=== PATIENT | female | born 1950 | race Caucasian/White ===

== ENCOUNTER 2016-04-29 08:49 | Day surgery (SDC) | payer MEDICARE, OTHER ==
--- NOTE | 2016-04-26 16:02 | HP ---
PROCEDURE DATE: 04/29/16 HISTORY OF PRESENT ILLNESS: The patient is a 65 y/o with history of some right-sided abdominal pain. Started [address] scan showed multifocal ascending colon bowel wall thickening. We felt the patient needed colonoscopy. Has had descending diverticula. She had chronic hiatal hernia with partial thoracic stomach. No fever. No diarrhea currently per the patient. No blood in her stool currently. She took some tramadol and had some vomiting after taking tramadol. PAST MEDICAL HISTORY: She has had history of breast cancer, hypothyroidism, hypertension, hypercholesterolemia. She had a stroke in the past. She had Factor V deficiency, prothrombin gene. CURRENT MEDICATIONS: Levothyroxine, lisinopril, omeprazole, simvastatin, and Xarelto. ALLERGIES: SHE HAD PROBLEMS WITH NORCO, CODEINE, AND POSSIBLY TRAMADOL, SHE HAD SOME VOMITING AFTER TAKING IT. PAST SURGICAL HISTORY: She had D&C, thermal ablation, hysterectomy. She had meniscus tears in the past. She had a mass near her thyroid in the past. Had breast cancer surgery in the past. FAMILY HISTORY: Negative for colon cancer. Family history of diverticular disease. Negative for inflammatory bowel disease in the family. Heart disease, diabetes, hypertension, lung cancer. She had some right abdominal pain. Had colon thickening. [place] she would benefit from colonoscopy. Additionally, the fact that she had history of Hahn's clinically on Dr. Ernst's exams in the past per history, felt she would also benefit from upper endoscopy in addition to the colonoscopy. SOCIAL HISTORY: No alcohol abuse. REVIEW OF SYSTEMS: 10 systems reviewed per admission assessment. Otherwise, no chest pains or palpitations currently. Otherwise, pertinent for as noted above. PHYSICAL EXAMINATION: GENERAL: No acute distress. HEENT: Sclerae nonicteric. NECK: No JVD. ABDOMEN: Soft. No peritoneal signs. EXTREMITIES: No significant edema. NEURO: Alert, moving extremities grossly symmetrically. RECTAL: Deferred until time of endoscopy exam. IMPRESSION: 1. HISTORY OF SOME RIGHT-SIDED ABDOMINAL PAIN. She had some multifocal colon thickening in the ascending colon on CT scan. Feel she needs colonoscopy to evaluate for colitis or some inflammatory bowel disease vs neoplasia or other etiology. Additionally, as she has had a history of Hahn's and she thinks it has been about 3 years or so since she has had an endoscopy in the past, feel she would benefit from follow-up surveillance upper endoscopy as she has had a history of Hahn's followed by Dr. Ernst in the past as he has left town. Therefore, will proceed with colonoscopy and upper endoscopy as an outpatient. Risks and benefits explained in detail, but not limited to, bleeding; infection; small risk of bowel injury or perforation possibly requiring open procedure; small risk of missed or nondiagnosis or incomplete exam possibly requiring barium enema or other studies or procedures; general risks of anesthesia or sedation. 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 She has a little bit increased risk of clots, stroke, or other thrombosis. Otherwise, general risks of anesthesia, deep vein thrombosis, pulmonary embolism, or pneumonia; risk of bowel prep; postoperative risks of nausea, vomiting, or cramping or possibility of inability to diagnose the etiology of what caused her symptoms to begin with. She understands and agrees to the planned procedure. Will proceed with colonoscopy and upper endoscopy as an outpatient under MAC anesthesia.
[~2016-04-29 08:49] MED LIST: DIPRIVAN 200 MG/20 ML IV ONE; Lactated Ringers 1,000 ML IV ONE; Lactated Ringers 1,000 ML IV SCH; SUBLIMAZE 100 MCG/2 ML IV ONE; Versed 2 MG/2 ML Injection IV ONE
[2016-04-29 09:33] VITALS: O2SAT 98
[2016-04-29 12:15] VITALS: BP 106/59; PULSE 90
--- NOTE | 2016-04-29 12:31 | OP ---
SURGERY DATE/TIME: 04/29/2016 1000 PREOPERATIVE DIAGNOSES: 1) History of Hahn's esophagus followed by Dr. Alexandr Ernst. 2) History of right abdominal pain, some thickening in the right colon on CT scan, need for colonoscopy as well as follow up screening upper endoscopy. POSTOPERATIVE DIAGNOSES: 1) Hiatal hernia. 2) Mild gastritis. 3) No gross Hahn's or changes. Biopsy taken where questioned area had healed distal esophagus just above gastroesophageal junction. 4) Very poor bowel prep very much limiting colon exam. 5) Diverticulosis. 6) Internal and external hemorrhoids. 7) Small early polyp versus hyperplastic lesion transverse colon. 8) Small raised lesion x2 versus early polyps or hyperplastic lesion rectum. PROCEDURES: 1) Colonoscopy to cecum with hot snare polypectomy transverse colon polyp. 2) Hot biopsy of small raised rectal lesion versus early polyp or hyperplastic lesion. 3) Random cold biopsy colon to evaluate for microscopic colitis. 4) EGD with biopsy of the antrum to evaluate for Helicobacter pylori. 5) Cold biopsy distal esophagus gastroesophageal junction. 6) EGD with cold biopsy to the antrum, cold biopsy distal esophagus to gastroesophageal junction, cold biopsy small gastric polyps. SURGEON: Dr. Denny Dumont. SAFE DEPOSIT CLERK: Pamella Martinez, Medical Student III. ANESTHESIA: MAC. ESTIMATED BLOOD LOSS: Minimal. INDICATIONS: As noted above. Risks and benefits explained in detail and not limited to and consent obtained. DESCRIPTION OF PROCEDURE AND FINDINGS: The patient was taken to the operating room. MAC anesthesia induced. After official time out and no disagreement with planned procedure, bite block positioned. Video gastroscope easily passed down the esophagus through the patent pylorus to the junction of the second and third portion of the duodenum. The duodenum and duodenal bulb grossly unremarkable. Back in the stomach she had some mild chronic erythema. It was felt that she warranted biopsy to evaluate for Helicobacter pylori. Cold biopsy taken. Good hemostasis noted. Otherwise she did have a couple small question of fundal gland polyps in the mid body of the stomach. These were removed with cold biopsy forceps. On retroflex she did have a hiatal hernia. The scope is then straightened. Gastroesophageal junction with a little bit of inflammation on the gastric side but the gastroesophageal junction z-line appeared fairly crisp. There did not appear to be the usual long standing Hahn's changes. Cold biopsy was taken in an area where there was question whether she could have had Hahn's in the past. Good hemostasis noted. Cold biopsy also taken of the slightly inflamed gastric site of the gastroesophageal junction. The remainder of the esophagus was grossly unremarkable. No signs of any obvious mucosal lesions. The scope is withdrawn. The patient tolerated the procedure well. There were no immediate complications. Attention is then turned to the colon exam. Digital rectal exam did not reveal any rectal masses. She did have some internal and external hemorrhoids. Video colonoscope inserted and passed up through the very poorly prepped colon. A large amount of semisolid to solid liquidy stool very much limiting the exam. This combined with some spasm and very tortuous colon made quite a lengthy process but slow careful advancing of the scope and very carefully navigating up through the sigmoid, descending, transverse colon. With external pressure and positioning on her back the scope was finally able to be advanced down the ascending colon to the cecum. Again the prep was very poor. Because of looping the scope would not go up the terminal ileum at this point in time. On withdrawal of the scope some random cold biopsies taken throughout the colon to evaluate for microscopic colitis. There did not appear to be any signs of any large polyps, masses or obstructing lesions particularly in the right colon where the CT scan findings had been noted but again the prep was very poor limiting exam for potentially small lesions. It was suction irrigated as well as possible but did limit exam. The scope slowly and carefully withdrawn. In the transverse colon there is a small polyp removed with hot snare polypectomy and brief bursts of cautery. Good hemostasis noted. Whether this is simple hyperplastic versus early adenomatous polyp was removed with hot snare and passed off elevating well away from the bowel wall. The scope is slowly and carefully withdrawn. There are no signs of any large polyps, masses or obstructing lesions. Again a very poor prep with large amount of solid, semisolid, liquidy stool limiting the exam. The scope is slowly and carefully withdrawn. She had some diverticulosis, had some small internal and external hemorrhoids. As there are no signs of any other large polyps, masses or obstructing lesions back in the rectum, she had two small raised lesions whether these are early true polyp versus hyperplastic lesions or variations of the mucosa they are removed with hot biopsy forceps with brief bursts of cautery. Good hemostasis noted. Other than that again random cold biopsy had been taken in the colon to evaluate for microscopic colitis. The scope is withdrawn. The patient tolerated the procedure well. There were no immediate complications. Findings discussed with the family out in the waiting area.
== END 2016-04-29 12:22 | disposition home or self-care (01) ==
LOC: SDC 08:49
PROVIDERS: ATTEND Surgery
PROC: 0DBL8ZX Excision of Transverse Colon, Via Natural or Artificial Opening Endoscopic, Diagnostic (ICD-10-PCS; principal; 2016-04-29)
PROC: 0DBP8ZX Excision of Rectum, Via Natural or Artificial Opening Endoscopic, Diagnostic (ICD-10-PCS; 2016-04-29)
PROC: 0DBE8ZX Excision of Large Intestine, Via Natural or Artificial Opening Endoscopic, Diagnostic (ICD-10-PCS; 2016-04-29)
PROC: 0DB68ZX Excision of Stomach, Via Natural or Artificial Opening Endoscopic, Diagnostic (ICD-10-PCS; 2016-04-29)
PROC: 0DB58ZX Excision of Esophagus, Via Natural or Artificial Opening Endoscopic, Diagnostic (ICD-10-PCS; 2016-04-29)
PROC: 0DB38ZX Excision of Lower Esophagus, Via Natural or Artificial Opening Endoscopic, Diagnostic (ICD-10-PCS; 2016-04-29)
PROC: 0DB68ZX Excision of Stomach, Via Natural or Artificial Opening Endoscopic, Diagnostic (ICD-10-PCS; 2016-04-29)
DX: K44.9 Diaphragmatic hernia without obstruction or gangrene (principal); K22.70 Barrett's esophagus without dysplasia; K29.70 Gastritis, unspecified, without bleeding; K57.90 Diverticulosis of intestine, part unspecified, without perforation or abscess without bleeding; K64.4 Residual hemorrhoidal skin tags; K64.8 Other hemorrhoids; D12.3 Benign neoplasm of transverse colon; K63.9 Disease of intestine, unspecified; K62.1 Rectal polyp; Z85.3 Personal history of malignant neoplasm of breast; E03.9 Hypothyroidism, unspecified; I10 Essential (primary) hypertension; E78.00 Pure hypercholesterolemia, unspecified; D68.2 Hereditary deficiency of other clotting factors; Z79.01 Long term (current) use of anticoagulants; Z79.899 Other long term (current) drug therapy; Z86.73 Personal history of transient ischemic attack (TIA), and cerebral infarction without residual deficits
CPT/HCPCS: 00740; 00810; 36415; 88305; 88312; J2250; J2704; J3010

== ENCOUNTER 2018-10-28 12:16 | Emergency (ER) | payer MEDICARE ==
--- NOTE | 2018-10-28 12:49 | ERPHSYRPT ---
- History of Present Illness Time Seen by Provider: 10/28/18 12:49 Exam Limitations: no limitations Patient Subjective Stated Complaint: pt alert, resp easy, skin w/d/p,rip. mastectomy in jan 2018, cva 10/03/2018 with left sided deficit, no swelling noted , port a cath to right side of chest, denies pain Triage Nursing Assessment: pt here for for high b/p today of 255/127.he took b/ p at 0720 and again at 1015. her b.p came down some but still wanted her seen. she has no symptoms with it Physician History: Hypertension; episodic since chemotherapy earler in summer. Today two episodes of high blood pressure - referred to ER by primary are. Nausea is present but this has been present previously with chemotherapy. Allergies/Adverse Reactions: codeine Adverse Reaction (Verified 10/28/18 12:33) Vomiting hydrocodone [From [place]] Adverse Reaction (Verified 10/28/18 12:33) Vomiting tramadol Adverse Reaction (Verified 10/28/18 12:33) Vomiting Home Medications: Famotidine 20 mg [Pepcid 20 MG] 40 mg PO UD PRN 04/19/16 [History] Levothyroxine Sodium 100 Mcg [Synthroid 100 Mcg] 100 mcg PO DAILY 04/19/16 [History] Lisinopril 20 mg [Zestril 20 MG] 20 mg PO DAILY 04/19/16 [History] Omeprazole 20 MG [Prilosec 20 mg] 40 mg PO DAILY 04/19/16 [History] Rivaroxaban [Xarelto] 20 mg PO DAILY 04/19/16 [History] Simvastatin 40 mg [Zocor 40 mg] 40 mg PO DAILY 04/19/16 [History] Hx Influenza Vaccination/Date Given: Yes Hx Pneumococcal Vaccination/Date Given: Yes Immunizations Up to Date: Yes - Review of Systems Constitutional: No Symptoms Ears, Nose, & Throat: No Symptoms Respiratory: No Symptoms, No Cough, No Dyspnea Cardiac: No Symptoms, No Chest Pain Abdominal/Gastrointestinal: Nausea, Vomiting (1 X in ER (patient says not unusual - takes compazine for nausea)) All Other Systems: Reviewed and Negative - Past Medical History Pertinent Past Medical History: Yes Neurological History: Stroke ENT History: No Pertinent History Cardiac History: Deep Vein Thrombosis, High Cholesterol, Hypertension, Other Respiratory History: No Pertinent History Endocrine Medical History: Hypothyroidism Musculoskeletal History: Osteoarthritis GI Medical History: GERD, Gallbladder Disease, Other History: Other Psycho-Social History: No Pertinent History Female Reproductive Disorders: Breast Cancer Other Medical History: MVP. left kidney 15% function. hiatal hernia- barettes Esophagus. Factor 5 blood dyscrasia - Past Surgical History Past Surgical History: Yes Neuro Surgical History: No Pertinent History Cardiac: No Pertinent History Respiratory: No Pertinent History Gastrointestinal: Cholecystectomy Genitourinary: No Pertinent History Musculoskeletal: Orthopedic Surgery Female Surgical History: Hysterectomy, Tubal Ligation, Mastectomy, Lumpectomy Other Surgical History: meniscus tear, right knee replaced. breast lumpectomy blood clot removal. d&c ablation. thyroid area nodule - not thyroid - Social History Smoking Status: Never smoker Exposure to second hand smoke: No Drug Use: none Patient Lives Alone: No - Female History Hx Last Menstrual Period: post Hx Now: No - Nursing Vital Signs Nursing Vital Signs: Initial Vital Signs Temperature 97.7 F 10/28/18 12:20 Pulse Rate 75 10/28/18 12:20 Respiratory Rate 18 10/28/18 12:20 Blood Pressure 201/67 10/28/18 12:20 O2 Sat by Pulse Oximetry 97 10/28/18 12:20 Pain Scale Pain Intensity 0 - Physical Exam General Appearance: no apparent distress Eye Exam: PERRL/EOMI Neck Exam: normal inspection Respiratory Exam: normal breath sounds, chest tenderness, lungs clear, airway intact, No respiratory distress Cardiovascular Exam: regular rate/rhythm, normal heart sounds Gastrointestinal/Abdomen Exam: soft, other (mildly hyperactive bowell sounds ( has had diarrhea since chemotherapy)) Extremity Exam: normal inspection, pedal edema (bilat mild - non pitting) SpO2: 97 - Course Nursing assessment & vital signs reviewed: Yes EKG Interpreted by Me: RATE (59), Sinus Rhythm, NORMAL AXIS, NORMAL INTERVALS, Other (Compared with 05/13/13 no specific changes) Rhythm Strip: Rate (60), Normal Sinus Rhythm - Radiology Exams Chest X-ray Interpretation: Reviewed by me, Other (No acute changes) Ordered Tests: Active Orders 24 hr Category Date Time Status CHEST 2 VIEWS (PA AND LAT) Stat Exams 10/28/18 13:00 Completed CBC W DIFF Stat Lab 10/28/18 13:15 Completed CMP Stat Lab 10/28/18 13:15 Completed D-DIMER QUANTITATION Stat Lab 10/28/18 13:15 Completed MAGNESIUM Stat Lab 10/28/18 13:15 Completed TROPONIN Q3H Lab 10/28/18 13:15 Completed TROPONIN Q3H Lab 10/28/18 16:00 Ordered TROPONIN Q3H Lab 10/28/18 19:00 Ordered TROPONIN Q3H Lab 10/28/18 22:00 Ordered TROPONIN Q3H Lab 10/29/18 01:00 Ordered Medication Summary Generic Name Dose Route Start Last Admin Trade Name Freq PRN Reason Stop Dose Admin Heparin Sodium (Beef Lung) 500 units 10/28/18 14:35 Heparin Lock Flush 100 Units/Ml 5ml Syringe PORT FLUSH 11/27/18 14:34 PRN PRN IV PORT FLUSH Heparin Sodium (Beef Lung) 500 units 10/28/18 14:37 Heparin Lock Flush 100 Units/Ml 5ml Syringe PORT FLUSH 11/27/18 14:36 PRN PRN IV PORT FLUSH Lab/Rad Data: Laboratory Result Diagrams 10/28/18 13:15 10/28/18 13:15 Laboratory Results 10/28/18 10/28/18 10/28/18 Range/Units 13:15 13:15 13:15 WBC (4.0-10.5) K/mm3 RBC (4.1-5.4) M/mm3 Hgb (12.0-16.0) gm/dl Hct (35-47) % MCV (78-100) fl MCH (26-32) pg MCHC (32-36) g/dl RDW (11.5-14.0) % Plt Count (150-450) K/mm3 MPV (6-9.5) fl Gran % (36.0-66.0) % Eos # (Auto) (0-0.5) Absolute Lymphs (auto) (1.0-4.6) Absolute Monos (auto) (0.0-1.3) Lymphocytes % (24.0-44.0) % Monocytes % (0.0-12.0) % Eosinophils % (0.00-5.0) % Basophils % (0.0-0.4) % Absolute Granulocytes (1.4-6.9) Basophils # (0-0.4) D-Dimer 371 (215-500) ng/mL Sodium 140 (137-145) mmol/L Potassium 4.7 (3.5-5.1) mmol/L Chloride 107 (98-107) mmol/L Carbon Dioxide 25 (22-30) mmol/L Anion Gap 12.5 (5-15) MEQ/L BUN 19 H (7-17) mg/dL Creatinine 1.01 (0.52-1.04) mg/dL Estimated GFR 57.9 ML/MIN Glucose 144 H (74-106) mg/dL Calcium 9.6 (8.4-10.2) mg/dL Magnesium 1.5 L (1.6-2.3) mg/dL Total Bilirubin 0.30 (0.2-1.3) mg/dL AST 20 (14-36) U/L ALT 17 (0-35) U/L Alkaline Phosphatase 122 (38-126) U/L Troponin I < 0.012 (0.000-0.034) ng/mL Serum Total Protein 7.2 (6.3-8.2) g/dL Albumin 4.1 (3.5-5.0) g/dL 10/28/18 Range/Units 13:15 WBC 3.7 L (4.0-10.5) K/mm3 RBC 3.41 L (4.1-5.4) M/mm3 Hgb 11.3 L (12.0-16.0) gm/dl Hct 33.9 L (35-47) % MCV 99.4 (78-100) fl MCH 33.1 H (26-32) pg MCHC 33.3 (32-36) g/dl RDW 12.2 (11.5-14.0) % Plt Count 200 (150-450) K/mm3 MPV 10.8 H (6-9.5) fl Gran % 64.2 (36.0-66.0) % Eos # (Auto) 0.10 (0-0.5) Absolute Lymphs (auto) 0.97 L (1.0-4.6) Absolute Monos (auto) 0.23 (0.0-1.3) Lymphocytes % 26.5 (24.0-44.0) % Monocytes % 6.3 (0.0-12.0) % Eosinophils % 2.7 (0.00-5.0) % Basophils % 0.3 (0.0-0.4) % Absolute Granulocytes 2.35 (1.4-6.9) Basophils # 0.01 (0-0.4) D-Dimer (215-500) ng/mL Sodium (137-145) mmol/L Potassium (3.5-5.1) mmol/L Chloride (98-107) mmol/L Carbon Dioxide (22-30) mmol/L Anion Gap (5-15) MEQ/L BUN (7-17) mg/dL Creatinine (0.52-1.04) mg/dL Estimated GFR ML/MIN Glucose (74-106) mg/dL Calcium (8.4-10.2) mg/dL Magnesium (1.6-2.3) mg/dL Total Bilirubin (0.2-1.3) mg/dL AST (14-36) U/L ALT (0-35) U/L Alkaline Phosphatase (38-126) U/L Troponin I (0.000-0.034) ng/mL Serum Total Protein (6.3-8.2) g/dL Albumin (3.5-5.0) g/dL - Departure Departure Disposition: Home Clinical Impression: Labile hypertension Condition: Good Critical Care Time: No Referrals: AZAR CHRISTIAN [Primary Care Provider] - Instructions: High Blood Pressure (DC) Additional Instructions: Continue medical plans by specialists and primary care. Follow up with primary care after their change in medication for blood pressure dosage today.
[2018-10-28 13:18] LABS: BASOPHIL % 0.3 % (0.0-0.4); Basophil (Absolute #) 0.01 (0-0.4); Eosinophil % 2.7 % (0.00-5.0); Granulocyte Absolute (ANC) 2.35 (1.4-6.9); Granulocytes % 64.2 % (36.0-66.0); Hematocrit 33.9 % (35-47); Hemoglobin 11.3 gm/dl (12.0-16.0); Lymphocyte (Absolute #) 0.97 (1.0-4.6); Lymphocytes % 26.5 % (24.0-44.0); Mean Cell Volume 99.4 fl (78-100); Mean Corpuscular Hemoglobin 33.1 pg (26-32); Mean Corpuscular Hgb Concent. 33.3 g/dl (32-36); Mean Platelet Volume 10.8 fl (6-9.5); Monocyte (Absolute #) 0.23 (0.0-1.3); Monocytes % 6.3 % (0.0-12.0); Platelet Count 200 K/mm3 (150-450); Red Blood Count 3.41 M/mm3 (4.1-5.4); Red Cell Distribution Width 12.2 % (11.5-14.0); White Blood Count 3.7 K/mm3 (4.0-10.5)
--- NOTE | 2018-10-28 13:21 | XRAY ---
Indication: High blood pressure. Comparison: January 28, 2008. PA/lateral chest remains clear. Heart is not enlarged with new right Port-A-Cath. Bony thorax intact with minimal degenerative changes. Impression: Nonacute chest with chronic features.
[2018-10-28 13:30] VITALS: O2SAT 97
[2018-10-28 13:31] LABS: ALBUMIN 4.1 g/dL (3.5-5.0); ANION GAP 12.5 MEQ/L (5-15); BILIRUBIN,TOTAL 0.3 mg/dL (0.2-1.3); Calcium 9.6 mg/dL (8.4-10.2); Creatinine 1 1.01 mg/dL (0.52-1.04); MAGNESIUM 1.5 mg/dL (1.6-2.3); Potassium 4.7 mmol/L (3.5-5.1); Total Protein 7.2 g/dL (6.3-8.2)
[2018-10-28 14:35] VITALS: BP 176/76; PULSE 54
== END 2018-10-28 14:45 | disposition home or self-care (01) ==
LOC: ED 12:16
DX: I10 Essential (primary) hypertension (principal)
CPT/HCPCS: 36415; 71046; 80053; 83735; 84484; 85025; 85379; 99284; J1642

== ENCOUNTER 2020-12-25 09:52 | Day surgery (SDC) | payer MEDICARE ==
[~2020-12-25 09:52] MED LIST changes: -DIPRIVAN 200 MG/20 ML IV ONE; -SUBLIMAZE 100 MCG/2 ML IV ONE; +Sensorcaine 0.25% 10 ML ONE; -Versed 2 MG/2 ML Injection IV ONE
[2020-12-25] MEDS ORDERED: CEFAZOLIN 2 GM-D5W BAG** 2 GM/50 ML ML IV ONE (09:53)
[2020-12-25] MEDS ORDERED: Lactated Ringers 1,000 ML IV ONE (10:19)
[2020-12-25 11:14] LABS: ANION GAP 12.3 MEQ/L (5-15); BILIRUBIN,TOTAL 0.5 mg/dL (0.2-1.3); Calcium 9.4 mg/dL (8.4-10.2); Creatinine 1 1.63 mg/dL (0.52-1.04); EST GLOMERULAR FILTRATION RATE 33.2 ML/MIN; Potassium 5.3 mmol/L (3.5-5.1); Total Protein 6.5 g/dL (6.3-8.2)
[2020-12-25] MEDS ORDERED: Sodium Chloride 0.9% 1000 ML 1,000 ML IV SCH (11:45)
[2020-12-25] MEDS ORDERED: DIPRIVAN 200 MG/20 ML IV ONE ×2 (13:49→14:25)
[2020-12-25] MEDS ORDERED: SUBLIMAZE 100 MCG/2 ML ONE (13:49)
[2020-12-25] MEDS ORDERED: Versed 2 MG/2 ML Injection ONE (13:50)
[2020-12-25] MEDS ORDERED: Sensorcaine 0.25% 10 ML ONE (14:17)
[2020-12-25] MEDS ORDERED: Ephedrine Sulfate 50 MG/ML ONE (14:18)
[2020-12-25 15:52] VITALS: PULSE 56; O2SAT 96
[2020-12-25] MEDS ORDERED: Sodium Chloride 0.9% 10 ML FLUSH Syringe PORT FLUSH PRN (16:00)
[2020-12-25 16:13] VITALS: BP 164/68
--- NOTE | 2021-01-08 14:07 | OP ---
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 PROCEDURE: Wide excision squamous cell carcinoma in situ 8 x 2.7 cm. PROCEDURE PERFORMED BY: Madeleine Gil M.D. COMPLICATIONS: None. ESTIMATED BLOOD LOSS: Minimal. ANESTHESIA: MAC. SPECIMEN: Squamous cell carcinoma in situ, short stitch superior, long stitch inferior, medium stitch posterior. HISTORY: This is a patient who presented with concerning lesion of her skin of the left flank. It was biopsied and shown to be squamous cell carcinoma in situ this was at the edge of the lesion. The lesion is concerning clinically for squamous cell carcinoma. Risks, benefits and alternatives regarding wide excision were discussed with the patient in detail. We also discussed treating it as a squamous cell carcinoma not just in situ due to the high suspicion to decrease the risk for second procedure. The patient understands all of the risks, benefits and alternatives. The site was marked with her awake and alert. All questions answered and she wanted to proceed with the wide excision. DESCRIPTION OF PROCEDURE: She is taken to the operative suite and anesthesia induced. Prepped and draped in the usual sterile fashion. Complete time out performed. The lesion was marked. I then placed a 5 mm margin around the mass lesion and then created an ellipse. The lesion was then sharply excised with the knife extending to the subcutaneous tissue. I then further resected the lesion with the Bovie cautery and created inferior and superior flaps. It was then closed with buried 3-0 Vicryl, running 4-0 subcuticular Monocryl stitch. Steri-Strips and sterile dressing. She tolerated the procedure very well and no immediate complications. She is going to be following up with me as an outpatient to check her wound and discuss her pathology report.
== END 2020-12-25 16:15 | disposition home or self-care (01) ==
LOC: SDC 09:52
PROVIDERS: ATTEND Surgery
DX: D04.5 Carcinoma in situ of skin of trunk (principal); I12.9 Hypertensive chronic kidney disease with stage 1 through stage 4 chronic kidney disease, or unspecified chronic kidney disease; N18.4 Chronic kidney disease, stage 4 (severe); Z79.899 Other long term (current) drug therapy
CPT/HCPCS: 36415; 80053; 93005; J0690; J1642; J2250; J2704; J3010

== ENCOUNTER 2022-02-06 17:17 | Emergency (ER) | payer MEDICARE ==
[2022-02-06 19:45] LABS: Absolute Neutrophil Ct (ANC) 2.16 x10^3/uL (1.4-6.9); Basophil (Absolute #) 0.03 x10^3/uL (0-0.4); Eosinophil % 2.7 % (0.00-5.0); Eosinophil (Absolute #) 0.12 x10^3/uL (0-0.5); Hematocrit 35.1 % (35-47); Hemoglobin 11.7 g/dL (12.0-16.0); Lymphocyte (Absolute #) 1.74 x10^3/uL (1.0-4.6); Lymphocytes % 39.7 % (24.0-44.0); Mean Cell Volume 91.2 fL (78-100); Mean Corpuscular Hemoglobin 30.4 pg (26-32); Mean Corpuscular Hgb Concent. 33.3 g/dL (32-36); Mean Platelet Volume 10.9 fL (7.5-11.0); Monocyte (Absolute #) 0.32 x10^3/uL (0.0-1.3); Monocytes % 7.3 % (0.0-12.0); Neutrophil % 49.4 % (36.0-66.0); Platelet Count 215 x10^3/uL (150-450); Red Blood Count 3.85 x10^6/uL (4.1-5.4); Red Cell Distribution Width 12.5 % (11.5-14.0); White Blood Count 4.4 x10^3/uL (4.0-10.5)
--- NOTE | 2022-02-06 19:45 | XRAY ---
Indication: Left lower quadrant pain 5 days. Multiple contiguous axial images obtained through the abdomen and pelvis without contrast. Comparison: April 09, 2016 Lung bases remain clear. Heart not enlarged. Again moderate-sized hiatal hernia with partial intrathoracic stomach. Noncontrasted stomach and bowel loops nonobstructed. Stable duodenal diverticulum. Appendix not seen. Again diffuse scattered colonic diverticulosis. Junction of descending and sigmoid colon demonstrates anastomosis with minimal wall thickening and minimal pericolonic stranding presumed inflammatory. Also new distal sigmoid anastomosis. No free fluid/air. Again cholecystectomy and hysterectomy. Again chronic smaller appearing left kidney. Remaining liver, pancreas, spleen, adrenal glands, kidneys, ureters, and bladder are unremarkable for noncontrast exam. Again mild scattered aortoiliac calcifications without AAA. Osseous structures intact with minimal degenerative changes throughout the spine. No ventral or inguinal hernias. Impression: 1. Since the prior study, there has been partial resection distal descending and sigmoid colon with intact anastomosis. The more proximal anastomosis demonstrates minimal wall thickening and pericolonic stranding presumed inflammatory. 2. Mild diffuse fecal stasis without obstruction. 3. Again chronic findings including hiatal hernia with partial intrathoracic stomach, duodenal diverticulum, colonic diverticulosis, atrophic left kidney, and scattered arteriosclerotic disease.
[2022-02-06 19:55] LABS: Appearance CLEAR (CLEAR); Bilirubin NEGATIVE (NEGATIVE); Dipstick done @ ? MAIN LAB; Glucose NEGATIVE (NEGATIVE); Ketones NEGATIVE (NEGATIVE); Nitrite NEGATIVE (NEGATIVE); Ph 6.5 (5-6); Protein,Urine Dip NEGATIVE (Negative); RBC NEGATIVE Ery/ul (0-5); Urobilinogen 0.2 mg/dL (0-1)
[2022-02-06 19:58] LABS: Epithelial Cells RARE /HPF (FEW)
[2022-02-06 20:01] LABS: Urine Cultured Indicated? NO
[2022-02-06 20:07] LABS: ALBUMIN 4.2 g/dL (3.5-5.0); ANION GAP 8.4 MEQ/L (5-15); BILIRUBIN,TOTAL 0.4 mg/dL (0.2-1.3); Calcium 9.2 mg/dL (8.4-10.2); Creatinine 1 1.42 mg/dL (0.52-1.04); EST GLOMERULAR FILTRATION RATE 38.8 ML/MIN; Potassium 3.3 mmol/L (3.5-5.1); Total Protein 7.2 g/dL (6.3-8.2)
[2022-02-06 20:14] VITALS: BP 170/73; PULSE 75; O2SAT 98
--- NOTE | 2022-02-06 20:16 | ERPHSYRPT ---
- History of Present Illness Time Seen by Provider: 02/06/22 17:27 Historian: patient Exam Limitations: no limitations Patient Subjective Stated Complaint: Pt states "I had a resection of my intestines in september and for the past couple of days it does not happen all the time but I will get a sharp severe pain in my left lower abdomen." Triage Nursing Assessment: Pt presented alert and oriented X 3, skin pwd. Pt ambulates with an upright steady gait, able to speak in clear full setences pt in no apparent respiratory distress. Physician History: Patient sent in from urgent care. Patient had 1 episode of 5 minutes of left lower quadrant pain earlier today. No other falls or trauma. Patient has a recent colectomy and reanastomosis approximately 4 months ago. No other falls or trauma. This was secondary to perforated bowel and infection. This was done at [facility]. We do not have any records here. Patient has no fever, active abdominal pain. She does try any medications to make it better or worse. Patient had a negative UA at urgent care. Therefore was sent over here. Timing/Duration: today Activities at Onset: none Quality: dullness Abdominal Pain Onset Location: LLQ Pain Radiation: no radiation Severity of Pain-Max: mild Severity of Pain-Current: mild Modifying Factors: Improves With: nothing Allergies/Adverse Reactions: aspartame [From Nutrasweet Aspartame] Allergy (Verified 12/25/20 11:05) Difficulty Breathing codeine Adverse Reaction (Verified 12/25/20 11:05) Vomiting hydrocodone [From [place]] Adverse Reaction (Verified 12/25/20 11:05) Vomiting Home Medications: Levothyroxine Sodium 100 Mcg [Synthroid 100 Mcg] 100 mcg PO DAILY 04/19/16 [History] Omeprazole 20 MG [Prilosec 20 mg] 40 mg PO BID 04/19/16 [History] Simvastatin 40 mg [Zocor 40 mg] 20 mg PO HS 04/19/16 [History] Bacillus Coagulans [Probiotic] 1 each PO DAILY 12/19/20 [History] Cyanocobalamin (Vitamin B-12) [Vitamin B-12] 1,000 units PO DAILY 12/19/20 [History] Labetalol HCl [Trandate] 100 mg PO BID 12/19/20 [History] Liothyronine Sodium [Cytomel] 0.5 tab PO BID 12/19/20 [History] Multivitamin 1 each PO DAILY 12/19/20 [History] Nifedipine [Nifedipine ER] 30 mg PO QHS 12/19/20 [History] Chlorthalidone 25 mg PO DAILY 08/28/21 [History] Ferrous Sulfate 325 mg [Feosol 325 mg] 325 mg PO DAILY 08/28/21 [History] Loratadine [Claritin] 10 mg PO HS 08/28/21 [History] Magnesium Oxide 400 mg [Mag-Ox 400] 400 mg PO DAILY 08/28/21 [History] NIFEdipine [Nifedipine ER] 30 mg PO HS 08/28/21 [History] Quetiapine Fumarate 25 mg [Seroquel 25 MG] 25 mg PO HS 08/28/21 [History] Sennosides/Docusate Sodium [Senexon-S 50-8.6 mg Tablet] 1 each PO BID 08/28/21 [History] Tamsulosin HCl 0.4 mg PO HS 08/28/21 [History] Hx Tetanus, Diphtheria Vaccination/Date Given: Yes Hx Influenza Vaccination/Date Given: Yes Hx Pneumococcal Vaccination/Date Given: Yes Immunizations Up to Date: No Travel Risk - International Travel Have you traveled outside of the country in past 3 weeks: No - Coronavirus Screening Are you exhibiting any of the following symptoms?: No Close contact with a COVID-19 positive Pt in past 14-21 Days: No - Vaccine Status Have you recieved a Covid-19 vaccination: Yes Food Service Employee: [employer] - Vaccination Dates Date of 2cond Vaccination (if applicable): 2020 - Review of Systems Constitutional: No Fever, No Chills Eyes: No Symptoms Ears, Nose, & Throat: No Symptoms Respiratory: No Cough, No Dyspnea Cardiac: No Chest Pain, No Edema, No Syncope Abdominal/Gastrointestinal: Abdominal Pain, No Nausea, No Vomiting, No Diarrhea Genitourinary Symptoms: No Dysuria Musculoskeletal: No Back Pain, No Neck Pain Skin: No Rash Neurological: No Dizziness, No Focal Weakness, No Sensory Changes Psychological: No Symptoms Endocrine: No Symptoms All Other Systems: Reviewed and Negative - Past Medical History Pertinent Past Medical History: Yes Neurological History: Stroke ENT History: No Pertinent History Cardiac History: Deep Vein Thrombosis, High Cholesterol, Hypertension, Other Respiratory History: No Pertinent History, Pulmonary Embolism Endocrine Medical History: Hypothyroidism Musculoskeletal History: Osteoarthritis GI Medical History: GERD, Gallbladder Disease, Hernia, Other History: Renal Disease, Other Psycho-Social History: No Pertinent History Female Reproductive Disorders: Breast Cancer Other Medical History: MVP. left kidney 15% function- stage 3 CKD. hiatal hernia- barettes Esophagus. Factor 5 blood dyscrasia - Past Surgical History Past Surgical History: Yes Neuro Surgical History: No Pertinent History Cardiac: No Pertinent History Respiratory: No Pertinent History Gastrointestinal: Cholecystectomy Genitourinary: No Pertinent History Musculoskeletal: Orthopedic Surgery Female Surgical History: Hysterectomy, Tubal Ligation, Mastectomy, Lumpectomy Other Surgical History: meniscus tear, right knee replaced. breast lumpectomy blood clot removal. d&c ablation. thyroid area nodule - not thyroid - Social History Smoking Status: Never smoker Exposure to second hand smoke: No Drug Use: none Patient Lives Alone: No - Nursing Vital Signs Nursing Vital Signs: Initial Vital Signs Temperature 98.2 F 02/06/22 17:38 Pulse Rate 89 02/06/22 17:38 Respiratory Rate 22 02/06/22 17:38 Blood Pressure 207/92 02/06/22 17:38 O2 Sat by Pulse Oximetry 98 02/06/22 17:38 Pain Scale Pain Intensity 0 - Physical Exam General Appearance: no apparent distress, alert Eye Exam: PERRL/EOMI, eyes nml inspection Ears, Nose, Throat Exam: normal ENT inspection, pharynx normal, moist mucous membranes Neck Exam: normal inspection, non-tender, supple, full range of motion Respiratory Exam: normal breath sounds, lungs clear, No respiratory distress Cardiovascular Exam: regular rate/rhythm, normal heart sounds Gastrointestinal/Abdomen Exam: soft, tenderness, other (Mild left lower quadrant tenderness. Well-healed abdominal incisions.), No mass Back Exam: normal inspection, normal range of motion, No CVA tenderness, No vertebral tenderness Extremity Exam: normal inspection, normal range of motion, pelvis stable Neurologic Exam: alert, oriented x 3, cooperative, normal mood/affect, nml cerebellar function, sensation nml, No motor deficits Skin Exam: normal color, warm, dry SpO2: 98 - Course Nursing assessment & vital signs reviewed: Yes EKG Interpreted by Me: Sinus Rhythm Ordered Tests: Active Orders 24 hr Category Date Time Status ABDOMEN AND PELVIS W/0 CONTRAS [CT] Stat Exams 02/06/22 18:13 Completed CBC W DIFF Stat Lab 02/06/22 19:20 Completed CMP Stat Lab 02/06/22 19:20 Completed LIPASE Stat Lab 02/06/22 19:20 Completed Lactic Acid Stat Lab 02/06/22 19:20 Completed UA W/RFX CULTURE Stat Lab 02/06/22 19:16 Completed Medication Summary Discontinued Medications Generic Name Dose Route Start Last Admin Trade Name Freq PRN Reason Stop Dose Admin Heparin Sodium (Beef Lung) 500 units 02/06/22 20:25 Heparin Lock Flush Pf 500 Units/5 Ml Syringe PORT FLUSH 03/08/22 20:24 PRN PRN IV PORT FLUSH Heparin Sodium (Beef Lung) Confirm 02/06/22 20:26 Heparin Lock Flush Pf 500 Units/5 Ml Syringe Administered 02/06/22 20:27 Dose 500 units .ROUTE .Dabble DB Lab/Rad Data: Laboratory Result Diagrams 02/06/22 19:20 02/06/22 19:20 Laboratory Results 02/06/22 02/06/22 02/06/22 Range/Units 19:20 19:20 19:20 WBC 4.4 (4.0-10.5) x10^3/uL RBC 3.85 L (4.1-5.4) x10^6/uL Hgb 11.7 L (12.0-16.0) g/dL Hct 35.1 (35-47) % MCV 91.2 (78-100) fL MCH 30.4 (26-32) pg MCHC 33.3 (32-36) g/dL RDW 12.5 (11.5-14.0) % Plt Count 215 (150-450) x10^3/uL MPV 10.9 (7.5-11.0) fL Gran % 49.4 (36.0-66.0) % Immature Gran % (Auto) 0.2 (0.00-0.4) % Nucleat RBC Rel Count 0.0 (0.00-0.1) % Eos # (Auto) 0.12 (0-0.5) x10^3/uL Immature Gran # (Auto) 0.01 (0.00-0.03) x10^3u/L Absolute Lymphs (auto) 1.74 (1.0-4.6) x10^3/uL Absolute Monos (auto) 0.32 (0.0-1.3) x10^3/uL Absolute Nucleated RBC 0.00 (0.00-0.01) x10^3u/L Lymphocytes % 39.7 (24.0-44.0) % Monocytes % 7.3 (0.0-12.0) % Eosinophils % 2.7 (0.00-5.0) % Basophils % 0.7 (0.0-0.4) % Absolute Granulocytes 2.16 (1.4-6.9) x10^3/uL Basophils # 0.03 (0-0.4) x10^3/uL Sodium 136 L (137-145) mmol/L Potassium 3.3 L (3.5-5.1) mmol/L Chloride 99 (98-107) mmol/L Carbon Dioxide 32 H (22-30) mmol/L Anion Gap 8.4 (5-15) MEQ/L BUN 21 H (7-17) mg/dL Creatinine 1.42 H (0.52-1.04) mg/dL Estimated GFR 38.8 ML/MIN Glucose 104 (74-106) mg/dL Lactic Acid 0.6 (0.4-2.0) Calcium 9.2 (8.4-10.2) mg/dL Total Bilirubin 0.40 (0.2-1.3) mg/dL AST 23 (14-36) U/L ALT 19 (0-35) U/L Alkaline Phosphatase 145 H (38-126) U/L Serum Total Protein 7.2 (6.3-8.2) g/dL Albumin 4.2 (3.5-5.0) g/dL Lipase 76 (23-300) U/L Urinalys Dipstick Clnc Urine Color (YELLOW) Urine Appearance (CLEAR) Urine pH (5-6) Ur Specific [place] (1.005-1.025) POC Urine Protein Conf (Negative) Urine Ketones (NEGATIVE) Urine Nitrite (NEGATIVE) Urine Bilirubin (NEGATIVE) Urine Urobilinogen (0-1) mg/dL Urine Leukocytes (NEGATIVE) Urine WBC (Auto) (0-5) /HPF Urine RBC (Auto) U Epithel Cells (Auto) (FEW) /HPF Urine Bacteria (Auto) (NEGATIVE) /HPF Urine RBC (0-5) Ángel/ul Ur Culture Indicated? Urine Glucose (NEGATIVE) mg/dL 02/06/22 Range/Units 19:16 WBC (4.0-10.5) x10^3/uL RBC (4.1-5.4) x10^6/uL Hgb (12.0-16.0) g/dL Hct (35-47) % MCV (78-100) fL MCH (26-32) pg MCHC (32-36) g/dL RDW (11.5-14.0) % Plt Count (150-450) x10^3/uL MPV (7.5-11.0) fL Gran % (36.0-66.0) % Immature Gran % (Auto) (0.00-0.4) % Nucleat RBC Rel Count (0.00-0.1) % Eos # (Auto) (0-0.5) x10^3/uL Immature Gran # (Auto) (0.00-0.03) x10^3u/L Absolute Lymphs (auto) (1.0-4.6) x10^3/uL Absolute Monos (auto) (0.0-1.3) x10^3/uL Absolute Nucleated RBC (0.00-0.01) x10^3u/L Lymphocytes % (24.0-44.0) % Monocytes % (0.0-12.0) % Eosinophils % (0.00-5.0) % Basophils % (0.0-0.4) % Absolute Granulocytes (1.4-6.9) x10^3/uL Basophils # (0-0.4) x10^3/uL Sodium (137-145) mmol/L Potassium (3.5-5.1) mmol/L Chloride (98-107) mmol/L Carbon Dioxide (22-30) mmol/L Anion Gap (5-15) MEQ/L BUN (7-17) mg/dL Creatinine (0.52-1.04) mg/dL Estimated GFR ML/MIN Glucose (74-106) mg/dL Lactic Acid (0.4-2.0) Calcium (8.4-10.2) mg/dL Total Bilirubin (0.2-1.3) mg/dL AST (14-36) U/L ALT (0-35) U/L Alkaline Phosphatase (38-126) U/L Serum Total Protein (6.3-8.2) g/dL Albumin (3.5-5.0) g/dL Lipase (23-300) U/L Urinalys Dipstick Clnc MAIN LAB Urine Color YELLOW (YELLOW) Urine Appearance CLEAR (CLEAR) Urine pH 6.5 (5-6) Ur Specific [place] 1.010 (1.005-1.025) POC Urine Protein Conf NEGATIVE (Negative) Urine Ketones NEGATIVE (NEGATIVE) Urine Nitrite NEGATIVE (NEGATIVE) Urine Bilirubin NEGATIVE (NEGATIVE) Urine Urobilinogen 0.2 (0-1) mg/dL Urine Leukocytes NEGATIVE (NEGATIVE) Urine WBC (Auto) NONE (0-5) /HPF Urine RBC (Auto) Not Reportable U Epithel Cells (Auto) RARE (FEW) /HPF Urine Bacteria (Auto) NONE (NEGATIVE) /HPF Urine RBC NEGATIVE (0-5) Ángel/ul Ur Culture Indicated? NO Urine Glucose NEGATIVE (NEGATIVE) mg/dL - Progress Progress: improved Progress Note: 02/06/22 23:05 differential diagnosis includes kidney stone, compression fracture, infection, UTI, triple AAA - basic labs including: CBC, lipase, CMP, UA - insert IV for fluids, pain meds, nausea control - consider imaging: CT ab/pelvis Patient feels improved with medication. Labs and CT demonstrate no obvious abnormalities. CT scan remained stable when compared to previous. Possibly some mild inflammatory changes. Patient has no leukocytosis, no signs of infection. Low suspicion for small bowel injury, acute colitis. Plan for discharge home. Patient will call her surgeon that performed the surgery for seen tomorrow. She may return here sooner for new or changing symptoms. Counseled pt/family regarding: lab results, diagnosis, need for follow-up, rad results - Departure Departure Disposition: Home Clinical Impression: Abdominal pain Condition: Stable Critical Care Time: No Referrals: TANNER CABALLERO DO [Primary Care Provider] - Follow up/PCP as directed Instructions: Colorectal Resection
== END 2022-02-06 20:45 | disposition home or self-care (01) ==
LOC: ED 17:17
DX: R10.32 Left lower quadrant pain (principal); K63.89 Other specified diseases of intestine; E78.5 Hyperlipidemia, unspecified; I12.9 Hypertensive chronic kidney disease with stage 1 through stage 4 chronic kidney disease, or unspecified chronic kidney disease; N18.30 Chronic kidney disease, stage 3 unspecified; Z79.899 Other long term (current) drug therapy
CPT/HCPCS: 36000; 36415; 74176; 80053; 81015; 83605; 83690; 85025; 99284; J1642

== ENCOUNTER 2022-02-25 10:33 | Day surgery (SDC) | payer MEDICARE ==
[2022-02-25] MEDS ORDERED: Lactated Ringers 1,000 ML IV SCH (11:00)
[2022-02-25] MEDS ORDERED: Lactated Ringers 1,000 ML IV ONE (11:15)
[2022-02-25] MEDS ORDERED: DIPRIVAN 200 MG/20 ML IV ONE (12:19)
[2022-02-25] MEDS ORDERED: Xylocaine-Mpf 2% 5 Ml Vial ONE (12:19)
[2022-02-25] MEDS ORDERED: Sodium Chloride 0.9% 10 ML FLUSH Syringe PORT FLUSH PRN (13:20)
[2022-02-25 13:40] VITALS: BP 157/72; PULSE 74; O2SAT 95
--- NOTE | 2022-02-26 09:18 | OP ---
PROCEDURE DATE/TIME: 02/25/2022 1227 PREOPERATIVE DIAGNOSIS: Left upper quadrant abdominal pain with some Hahn's disease. POSTOPERATIVE DIAGNOSES: 1) Mild gastritis. 2) Hiatal hernia with tortuosity of the esophagus distally. 3) Gastroesophageal reflux disease possible Hahn's disease. PROCEDURE: EGD with biopsy. PROCEDURE PERFORMED BY: Madeleine Gil M.D. ESTIMATED BLOOD LOSS: Minimal. ANESTHESIA: MAC. COMPLICATIONS: None. SPECIMENS: 1) Antral biopsy. 2) Gastric body biopsy. 3) Distal esophagus biopsy. HISTORY: This is a patient who presents with a history of Hahn's disease as well as left upper quadrant abdominal pain and she is here for EGD. Risks, benefits, alternatives have been discussed with her in detail. She understands, agrees and she would like to proceed with the upper scope only. She was seen in the preoperative area. All questions have been answered. Her H&P and consent have been reviewed with her and confirmed. DESCRIPTION OF PROCEDURE: She was then brought back to the endoscopy suite. Laid in the left lateral decubitus position. Anesthesia induced. Complete time out performed. Scope gently introduced into the mouth, oropharynx down into the esophagus, stomach and duodenum. The duodenum was normal this was visualized to the level of the second portion. The scope was withdrawn back into the stomach. In the antrum there was some mild gastritis this was very minimal. In the body the gastritis was still mild but more apparent. I took biopsies in the antrum and the body. These were sent to pathology separately. All sites hemostatic. On retroflex view, the hiatal hernia is identified as well as the gastroesophageal junction. There are no concerning masses in the stomach. The scope was withdrawn into the distal esophagus. The distal esophagus gastroesophageal junction is at 32 cm. I took multiple biopsies here. She does appear to have reflux changes here and this is consistent with a very early short segment Hahn's disease. We sent all of these biopsies to pathology. Since this disease looks so early, I would also not be surprised if there were no Hahn-type changes on this final pathology. She also does have an angulation at the distal esophagus with a tortuosity here. The remainder of her esophagus does appear to be normal although it is shortened due to the hiatal hernia. The scope is completely withdrawn. The patient tolerated the procedure very well. There were no immediate complications. PLAN: Continue proton pump inhibitor medication, anti-reflux diet and lifestyle and EGD for surveillance due to the Hahn's history in two years. We will discuss further options at our next appointment including surgical option versus conservative treatment.
== END 2022-02-25 13:59 | disposition home or self-care (01) ==
LOC: SDC 10:33
PROVIDERS: ATTEND Surgery
DX: K29.70 Gastritis, unspecified, without bleeding (principal); R10.12 Left upper quadrant pain; K22.70 Barrett's esophagus without dysplasia; K44.9 Diaphragmatic hernia without obstruction or gangrene; K21.9 Gastro-esophageal reflux disease without esophagitis
CPT/HCPCS: 99100; J1642; J2704

== ENCOUNTER 2024-03-01 07:53 | Emergency (ER) | payer MEDICARE ==
[2024-03-01 09:17] VITALS: TEMP 98.4
[2024-03-01] MEDS ORDERED: Sodium Chloride 0.9% 1000 ML 1,000 ML ONE (09:37)
[2024-03-01] MEDS ORDERED: BENADRYL 50 MG/ML ONE (09:37)
[2024-03-01] MEDS ORDERED: TORAdol 30 mg Injection ONE (09:37)
[2024-03-01] MEDS: TORAdol 30 mg Injection IV ONE (09:40)
[2024-03-01] MEDS: BENADRYL 50 MG/ML IV ONE (09:40)
[2024-03-01] MEDS: Sodium Chloride 0.9% 1000 ML 1,000 ML IV STA (09:40)
[2024-03-01] MEDS ORDERED: PROVENTIL 2.5 MG/3 ML NEB IH ONE (09:46)
[2024-03-01 10:05] LABS: Absolute Neutrophil Ct (ANC) 7.89 x10^3/uL (1.56-6.13); BASOPHIL % 0.2 % (0.1-1.2); Basophil (Absolute #) 0.02 x10^3/uL (0.01-0.08); Eosinophil % 0.6 % (0.7-5.8); Eosinophil (Absolute #) 0.06 x10^3/uL (0.04-0.36); Hematocrit 40.8 % (34.1-44.9); Hemoglobin 13.9 g/dL (11.2-15.7); IMMATURE GRAN # 0.12 x10^3u/L (0.001-0.031); IMMATURE GRAN % 1.2 % (0.001-0.429); Lymphocyte (Absolute #) 1.39 x10^3/uL (1.18-3.74); Lymphocytes % 13.6 % (19.3-51.7); Mean Cell Volume 88.7 fL (79.4-94.8); Mean Corpuscular Hemoglobin 30.2 pg (25.6-32.2); Mean Corpuscular Hgb Concent. 34.1 g/dL (32.2-35.5); Mean Platelet Volume 11.2 fL (9.4-12.3); Monocyte (Absolute #) 0.73 x10^3/uL (0.24-0.86); Monocytes % 7.1 % (4.7-12.5); Neutrophil % 77.3 % (34.0-71.1); Platelet Count 234 x10^3/uL (182-369); Red Cell Distribution Width 12.3 % (11.7-14.4); White Blood Count 10.2 x10^3/uL (3.98-10.04)
--- NOTE | 2024-03-01 10:27 | XRAY ---
Indication: Pneumonia. Comparison: October 28, 2018 Portable apical lordotic chest again demonstrates normal heart and lungs with incidental hiatal hernia, right hemidiaphragm elevation, and right Port-A-Cath. Bony thorax intact again with osteopenia and minimal degenerative changes. No new/acute findings.
[2024-03-01] MEDS: PROVENTIL 2.5 MG/3 ML NEB IH ONE (10:28)
[2024-03-01 10:38] LABS: ALBUMIN 4.2 g/dL (3.5-5.0); ANION GAP 12.8 MEQ/L (5-15); BILIRUBIN,TOTAL 0.6 mg/dL (0.2-1.3); Calcium 10.2 mg/dL (8.4-10.2); Creatinine 1 2.39 mg/dL (0.52-1.04); EST GLOMERULAR FILTRATION RATE 20.9 ML/MIN; Potassium 4.4 mmol/L (3.5-5.1); Total Protein 6.9 g/dL (6.3-8.2)
--- NOTE | 2024-03-01 10:45 | XRAY ---
Indication: Headache. Multiple contiguous axial images obtained through the head without contrast. Comparison: April 25, 2020 Normal appearing brain parenchyma, ventricles, and bony calvarium for patient's age. Visualized paranasal sinuses and mastoid air cells are clear. Impression: Again normal CT head without contrast exam.
[2024-03-01 10:55] LABS: Appearance Clear (Clear); Bacteria None Seen /HPF (None Seen); Bilirubin Negative (Negative); Blood Negative (Negative); Epithelial Cells None Seen /HPF (None Seen); Glucose, Urine Negative (Negative); Ketones Negative (Negative); Leukocyte Esterase Small (Negative); Nitrite Negative (Negative); Ph 5.5 (4.6-8.0); Protein,Urine Dip Negative (Negative); RBC 0-2 /HPF (0-5); Specific Gravity 1.015 (1.005-1.030); Urobilinogen 0.2 mg/dL (0.2)
[2024-03-01 11:06] VITALS: RESP 18
--- NOTE | 2024-03-01 12:30 | ERPHSYRPT ---
- History of Present Illness Time Seen by Provider: 03/01/24 09:11 Source: patient Exam Limitations: no limitations Patient Subjective Stated Complaint: Dizziness. Triage Nursing Assessment: Patient brought into ED per w/c and transferred to bed with assist of 1. Patient A+O X 3. Patient's skin pink, warm and dry. Patient complains of dizziness for 3 days. Patient complains of N/V and headache. Patient denies pain or discomfort. Patient complains of cough and SOB. Patient was started on Doxycycline and Prednisone on 02/22/2024 for bronchitis. Physician History: Patient is here with dizziness for 3 days. Complains of nausea, vomiting, headache. No pain or other discomfort. She does have a cough and shortness of breath. She recently had a URI and was placed on doxycycline and prednisone. She thinks that all of her symptoms started after she started prednisone. This was on 02/21. No other falls or trauma. Patient is taking PO well. Same number of urinations and defecations. The patient has no signs of altered mental status, nuchal rigidity, signs of meningitis. The patient is up-to-date on all vaccinations. She has no neurological symptoms. Allergies/Adverse Reactions: aspartame [From Nutrasweet Aspartame] Allergy (Verified 03/01/24 09:06) Difficulty Breathing codeine Adverse Reaction (Verified 03/01/24 09:06) Vomiting hydrocodone [From [place]] Adverse Reaction (Verified 03/01/24 09:06) Vomiting Home Medications: Levothyroxine Sodium 100 Mcg [Synthroid 100 Mcg] 100 mcg PO DAILY 04/19/16 [History] Omeprazole 20 MG [Prilosec 20 mg] 40 mg PO BID 04/19/16 [History] Simvastatin 40 mg [Zocor 40 mg] 20 mg PO HS 04/19/16 [History] Bacillus Coagulans [Probiotic] 1 each PO DAILY 12/19/20 [History] Cyanocobalamin (Vitamin B-12) [Vitamin B-12] 1,000 units PO DAILY 12/19/20 [History] Labetalol HCl [Trandate] 300 mg PO BID 12/19/20 [History] Liothyronine Sodium [Cytomel] 0.5 tab PO BID 12/19/20 [History] Multivitamin 1 each PO DAILY 12/19/20 [History] NIFEdipine [Nifedipine ER] 90 mg PO QHS 12/19/20 [History] Ferrous Sulfate 325 mg [Feosol 325 mg] 325 mg PO DAILY 08/28/21 [History] Magnesium Oxide 400 mg [Mag-Ox 400] 400 mg PO BID 08/28/21 [History] Tamsulosin HCl 0.4 mg PO HS 08/28/21 [History] Acetaminophen 650 mg [Feverall 650 mg] 650 mg PO DAILY PRN PRN 02/15/22 [History] Doxazosin Mesylate 2 mg [Cardura 2 mg] 4 mg PO BID 11/15/22 [History] Apixaban [Eliquis 2.5 mg Tablet] 5 mg PO BID 10/21/23 [History] Spironolactone 25 mg [Aldactone 25 MG] 25 mg PO DAILY 10/21/23 [History] Torsemide 20 mg [Demadex 20 mg] 40 mg PO UD 10/21/23 [History] Hx Tetanus, Diphtheria Vaccination/Date Given: Yes Hx Influenza Vaccination/Date Given: Yes Hx Pneumococcal Vaccination/Date Given: Yes Immunizations Up to Date: Yes Travel Risk - International Travel Have you traveled outside of the country in past 3 weeks: No - Emerging Infectious Disease Are you exhibiting symptoms associated with any current EIDs: No - Past Medical History Pertinent Past Medical History: Yes Neurological History: Stroke ENT History: No Pertinent History Cardiac History: Deep Vein Thrombosis, High Cholesterol, Hypertension, Other Respiratory History: No Pertinent History Endocrine Medical History: Hypothyroidism Musculoskeletal History: Osteoarthritis GI Medical History: GERD, Gallbladder Disease, Hernia, Other History: Renal Disease, Other Psycho-Social History: No Pertinent History Female Reproductive Disorders: Breast Cancer Other Medical History: MVP. 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 hiatal hernia- barettes Esophagus. Factor 5 blood dyscrasia. stroke/tia 2 008,, sepsis after knee replacement from UTI - Past Surgical History Past Surgical History: Yes Neuro Surgical History: No Pertinent History Cardiac: No Pertinent History Respiratory: No Pertinent History Gastrointestinal: Cholecystectomy, Colon Resection Genitourinary: No Pertinent History Musculoskeletal: Orthopedic Surgery Female Surgical History: Hysterectomy, Tubal Ligation, Mastectomy, Lumpectomy Other Surgical History: meniscus tear, right knee replaced. breast lumpectomy blood clot removal. d&c ablation. thyroid area nodule - not thyroid, left knee replacement, colostomy reversal - Social History Smoking Status: Former smoker Exposure to second hand smoke: No Drug Use: none Patient Lives Alone: No - Social Determinants of Health Will the patient participate in the screening: Yes Do you worry about a steady place to live?: No Do you have any problems with any of the following?: No known problems In the past 12 months,have you had to go without utilities?: No Transportation Issues: No Has anyone in your support network made you feel unsafe?: No Have you or anyone in your house had to go without enough: No - Nursing Vital Signs Nursing Vital Signs: Initial Vital Signs Temperature 98.4 F 03/01/24 09:09 Pulse Rate 78 03/01/24 09:09 Respiratory Rate 20 03/01/24 09:09 Blood Pressure 169/76 03/01/24 09:09 O2 Sat by Pulse Oximetry 97 03/01/24 09:09 Pain Scale Pain Intensity 3 - Physical Exam SpO2 Interpretation: normal SpO2: 96 Comments: 03/01/24 17:12 Review of Systems Constitutional: Negative for fever. HENT: Negative for congestion. Respiratory: Negative for shortness of breath. Cardiovascular: Negative for chest pain. Gastrointestinal: Negative for abdominal pain. Genitourinary: Negative for dysuria. Musculoskeletal: Negative for back pain. Skin: Negative for rash. Neurological: Negative for headaches. Psychiatric/Behavioral: Negative for behavioral problems. All other systems reviewed and are negative. Physical Exam Vitals signs and nursing note reviewed. Constitutional: Appearance: Patient is well-developed. HENT: Head: Normocephalic and atraumatic. Eyes: Conjunctiva/sclera: Conjunctivae normal. Neck: Musculoskeletal: Normal range of motion. Trachea: No tracheal deviation. Cardiovascular: Rate and Rhythm: Normal rate. Pulmonary: Effort: Pulmonary effort is normal. No respiratory distress. Abdominal: Palpations: Abdomen is soft. Musculoskeletal: General: No deformity. Skin: General: Skin is warm and dry. Neurological/ Psychiatric: Mental Status: Mental status, behavior, interaction with environment is appropriate for patient's age and condition Motor: There is no pronator drift of out-stretched arms. Muscle bulk and tone are normal. Strength is full bilaterally. Reflexes: Reflexes are 2+ and symmetric. Sensory: Light touch sense are intact in bilateral upper and lower extremities. Coordination: Rapid alternating movements are intact. 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 STAT Care 03/01/24 09:27 Completed EKG-ER Only STAT Care 03/01/24 09:26 Completed IV Insertion STAT Care 03/01/24 09:26 Completed CHEST 1 VIEW (PORTABLE) Stat Exams 03/01/24 09:27 Completed HEAD WITHOUT CONTRAST [CT] Stat Exams 03/01/24 09:28 Completed CBC W DIFF Stat Lab 03/01/24 09:55 Completed CK-Creatinine Phosphokinase Stat Lab 03/01/24 09:55 Completed CMP Stat Lab 03/01/24 09:55 Completed CULTURE,URINE Stat Lab 03/01/24 09:35 Received LIPASE Stat Lab 03/01/24 09:55 Completed NT PRO BNPII Stat Lab 03/01/24 09:55 Completed TROPONIN Q4H Lab 03/01/24 11:00 Completed UA W/RFX UR CULTURE Stat Lab 03/01/24 09:35 Completed Medication Summary Discontinued Medications Generic Name Dose Route Start Last Admin Trade Name Freq PRN Reason Stop Dose Admin Albuterol Sulfate 2.5 mg 03/01/24 09:29 03/01/24 10:28 Albuterol Sulfate 2.5 Mg/3 Ml Neb IH 03/01/24 09:30 2.5 mg STAT ONE Administration Albuterol Sulfate Confirm 03/01/24 09:46 Albuterol Sulfate 2.5 Mg/3 Ml Neb Administered 03/01/24 09:47 Dose 2.5 mg IH .STK-MED ONE Diphenhydramine HCl 25 mg 03/01/24 09:28 03/01/24 09:40 Diphenhydramine Hcl 50 Mg/Ml Vial IV 03/01/24 09:29 25 mg STAT ONE Administration Diphenhydramine HCl Confirm 03/01/24 09:37 Diphenhydramine Hcl 50 Mg/Ml Vial Administered 03/01/24 09:38 Dose 50 mg .ROUTE .STK-MED ONE Droperidol 1.25 mg 03/01/24 09:28 03/01/24 09:41 Droperidol 5 Mg/2 Ml Vial IV 03/01/24 09:29 1.25 mg STAT ONE Administration Droperidol Confirm 03/01/24 09:37 Droperidol 5 Mg/2 Ml Vial Administered 03/01/24 09:38 Dose 5 mg .ROUTE .STK-MED ONE Heparin Sodium (Beef Lung) 500 units 03/01/24 12:53 03/01/24 12:54 Heparin Lock Flush Pf 500 Units/5 Ml Syringe PORT FLUSH 03/31/24 12:52 500 units PRN PRN Administration IV PORT FLUSH Heparin Sodium (Beef Lung) Confirm 03/01/24 12:53 Heparin Lock Flush Pf 500 Units/5 Ml Syringe Administered 03/01/24 12:54 Dose 500 units .ROUTE .STK-MED ONE Sodium Chloride 1,000 mls @ 999 mls/hr 03/01/24 09:26 03/01/24 11:01 Sodium Chloride 0.9% 1000 Ml IV 03/01/24 10:26 Infused .Q1H1M STA Infusion Sodium Chloride Confirm 03/01/24 09:37 Sodium Chloride 0.9% 1000 Ml Administered 03/01/24 09:38 Dose 1,000 mls @ ud .ROUTE .STK-MED ONE Ketorolac Tromethamine 30 mg 03/01/24 09:28 03/01/24 09:40 Ketorolac Tromethamine 30 Mg/Ml Inj IV 03/01/24 09:29 30 mg STAT ONE Administration Ketorolac Tromethamine Confirm 03/01/24 09:37 Ketorolac Tromethamine 30 Mg/Ml Inj Administered 03/01/24 09:38 Dose 30 mg .ROUTE .STK-MED ONE Lab/Rad Data: Laboratory Result Diagrams 03/01/24 09:55 03/01/24 09:55 Laboratory Results 03/01/24 03/01/24 03/01/24 Range/Units 11:00 09:55 09:55 WBC (3.98-10.04) x10^3/uL RBC (3.93-5.22) x10^6/uL Hgb (11.2-15.7) g/dL Hct (34.1-44.9) % MCV (79.4-94.8) fL MCH (25.6-32.2) pg MCHC (32.2-35.5) g/dL RDW (11.7-14.4) % Plt Count (182-369) x10^3/uL MPV (9.4-12.3) fL Gran % (34.0-71.1) % Immature Gran % (Auto) (0.001-0.429) % Nucleat RBC Rel Count (0.00-0.2) % Eos # (Auto) (0.04-0.36) x10^3/uL Immature Gran # (Auto) (0.001-0.031) x10^3u/L Absolute Lymphs (auto) (1.18-3.74) x10^3/uL Absolute Monos (auto) (0.24-0.86) x10^3/uL Absolute Nucleated RBC (0.00-0.012) x10^3u/L Lymphocytes % (19.3-51.7) % Monocytes % (4.7-12.5) % Eosinophils % (0.7-5.8) % Basophils % (0.1-1.2) % Absolute Granulocytes (1.56-6.13) x10^3/uL Basophils # (0.01-0.08) x10^3/uL Sodium 131 L (135-145) mmol/L Potassium 4.4 (3.5-5.1) mmol/L Chloride 98 (98-107) mmol/L Carbon Dioxide 24 (22-30) mmol/L Anion Gap 12.8 (5-15) MEQ/L BUN 63 H (7-17) mg/dL Creatinine 2.39 H (0.52-1.04) mg/dL Estimated GFR 20.9 ML/MIN Glucose 100 (74-106) mg/dL Calcium 10.2 (8.4-10.2) mg/dL Total Bilirubin 0.60 (0.2-1.3) mg/dL AST 26 (14-36) U/L ALT 26 (0-35) U/L Alkaline Phosphatase 135 H (38-126) U/L Creatine Kinase 29 L (30-135) U/L Troponin I < 0.012 (0.000-0.033) ng/mL NT-Pro-B Natriuret Pep 344 (<300) pg/mL Serum Total Protein 6.9 (6.3-8.2) g/dL Albumin 4.2 (3.5-5.0) g/dL Lipase 166 (23-300) U/L Urine Color (Yellow) Urine Appearance (Clear) Urine pH (4.6-8.0) Ur Specific [place] (1.005-1.030) Urine Protein (Negative) Urine Glucose (UA) (Negative) mg/dL Urine Ketones (Negative) Urine Blood (Negative) Urine Nitrite (Negative) Urine Bilirubin (Negative) Urine Urobilinogen (0.2) mg/dL Ur Leukocyte Esterase (Negative) U Hyaline Cast (Auto) (0-2) /LPF Urine Microscopic RBC (0-5) /HPF Urine Microscopic WBC (0-5) /HPF Ur Epithelial Cells (None Seen) /HPF Urine Bacteria (None Seen) /HPF Urine Culture Reflexed (NO) 03/01/24 03/01/24 Range/Units 09:55 09:35 WBC 10.2 H (3.98-10.04) x10^3/uL RBC 4.60 (3.93-5.22) x10^6/uL Hgb 13.9 (11.2-15.7) g/dL Hct 40.8 (34.1-44.9) % MCV 88.7 (79.4-94.8) fL MCH 30.2 (25.6-32.2) pg MCHC 34.1 (32.2-35.5) g/dL RDW 12.3 (11.7-14.4) % Plt Count 234 (182-369) x10^3/uL MPV 11.2 (9.4-12.3) fL Gran % 77.3 H (34.0-71.1) % Immature Gran % (Auto) 1.2 H (0.001-0.429) % Nucleat RBC Rel Count 0.0 (0.00-0.2) % Eos # (Auto) 0.06 (0.04-0.36) x10^3/uL Immature Gran # (Auto) 0.12 H (0.001-0.031) x10^3u/L Absolute Lymphs (auto) 1.39 (1.18-3.74) x10^3/uL Absolute Monos (auto) 0.73 (0.24-0.86) x10^3/uL Absolute Nucleated RBC 0.00 (0.00-0.012) x10^3u/L Lymphocytes % 13.6 L (19.3-51.7) % Monocytes % 7.1 (4.7-12.5) % Eosinophils % 0.6 L (0.7-5.8) % Basophils % 0.2 (0.1-1.2) % Absolute Granulocytes 7.89 H (1.56-6.13) x10^3/uL Basophils # 0.02 (0.01-0.08) x10^3/uL Sodium (135-145) mmol/L Potassium (3.5-5.1) mmol/L Chloride (98-107) mmol/L Carbon Dioxide (22-30) mmol/L Anion Gap (5-15) MEQ/L BUN (7-17) mg/dL Creatinine (0.52-1.04) mg/dL Estimated GFR ML/MIN Glucose (74-106) mg/dL Calcium (8.4-10.2) mg/dL Total Bilirubin (0.2-1.3) mg/dL AST (14-36) U/L ALT (0-35) U/L Alkaline Phosphatase (38-126) U/L Creatine Kinase (30-135) U/L Troponin I (0.000-0.033) ng/mL NT-Pro-B Natriuret Pep (<300) pg/mL Serum Total Protein (6.3-8.2) g/dL Albumin (3.5-5.0) g/dL Lipase (23-300) U/L Urine Color Yellow (Yellow) Urine Appearance Clear (Clear) Urine pH 5.5 (4.6-8.0) Ur Specific [place] 1.015 (1.005-1.030) Urine Protein Negative (Negative) Urine Glucose (UA) Negative (Negative) mg/dL Urine Ketones Negative (Negative) Urine Blood Negative (Negative) Urine Nitrite Negative (Negative) Urine Bilirubin Negative (Negative) Urine Urobilinogen 0.2 (0.2) mg/dL Ur Leukocyte Esterase Small A (Negative) U Hyaline Cast (Auto) 6-10 A (0-2) /LPF Urine Microscopic RBC 0-2 (0-5) /HPF Urine Microscopic WBC 3-5 (0-5) /HPF Ur Epithelial Cells None Seen (None Seen) /HPF Urine Bacteria None Seen (None Seen) /HPF Urine Culture Reflexed ORDERED SEPARATELY (NO) - Progress Progress: improved Progress Note: 03/01/24 17:14 Differential diagnosis includes: PNA, STEMI, NSTEMI, other infection, musculoskeletal pain, pneumothorax, head bleed, electrolyte abnormality - We'll obtain basic labs, fluids, EKG, troponin, chest x-ray - EKG shows no ST changes - my read - O2 saturations consistently greater than 95%. - CXR shows no pneumonia, pneumothorax - my read Patient given headache medication and fluids. She states that she feels much improved. Head CT and chest x-ray are negative. No signs of a head bleed. Symptoms almost completely resolved with medication as above. Negative troponin, creatinine is slightly bumped. However patient has had elevated creatinines in the past and this is near her previous baselines. I did discuss all these findings with the patient. First troponin was negative. I feel comfortable with one-time negative troponin given that symptoms started 3 days ago. At this time we will discharge patient home with close follow-up to her PCP. I did state that she could discontinue her prednisone. She has already finished her course of doxycycline. I see no other signs of allergic reaction, oral airway is clear on my exam. Plan for discharge home at this point in time. Return here sooner for new or changing symptoms. Counseled pt/family regarding: lab results, diagnosis, need for follow-up, rad results - Departure Departure Disposition: Home Clinical Impression: Headache, Nausea and vomiting, Medication reaction Condition: Stable Critical Care Time: No Referrals: DEYANIRA MARY DO [Primary Care Provider] - Follow up/PCP as directed Instructions: Dizziness, Nonvertigo, (DC)
[2024-03-01 12:49] VITALS: BP 141/71; PULSE 77
[2024-03-01 17:13] VITALS: O2SAT 96
== END 2024-03-01 13:08 | disposition home or self-care (01) ==
LOC: ED 07:53
DX: R51.9 Headache, unspecified (principal); R42 Dizziness and giddiness; R11.2 Nausea with vomiting, unspecified; T50.995A Adverse effect of other drugs, medicaments and biological substances, initial encounter
CPT/HCPCS: 36415; 70450; 71045; 80053; 81001; 82550; 83690; 83880; 84484; 85025; 87086; 93005; 93041; 94640; 96360; 96374; 96375; 99284; 99285; J1200; J1642; J1885; J7609; A9270-GY